=== PATIENT | female | born 1975 | race Hispanic/Latino ===

== ENCOUNTER 2023-09-13 18:52 | Emergency (ER) | payer SELFPAY ==
[2023-09-13] MEDS ORDERED: Acetaminophen 500 MG TAB ONE (20:18)
[2023-09-13] MEDS ORDERED: Ibuprofen 200 MG TAB ONE (20:18)
[2023-09-13] MEDS ORDERED: Methocarbamol 500 MG TAB ONE (20:30)
== END 2023-09-13 21:50 | disposition home or self-care (01) ==
LOC: ERS 18:52
DX: M77.8 Other enthesopathies, not elsewhere classified (principal)
CPT/HCPCS: 99283

== ENCOUNTER 2025-06-23 10:10 | Outpatient (CLI) | payer OTHER | END 2025-06-23 10:11 | disposition home or self-care (01) | LOC: RAD 10:10 | PROVIDERS: ATTEND Nurse Practitioner Family | DX: S69.92XA Unspecified injury of left wrist, hand and finger(s), initial encounter (principal) ==